=== PATIENT | female | born 1985 | race American Indian/Alaskan Native ===

== ENCOUNTER 2016-07-25 14:05 | Emergency (ER) | payer MEDICAID, OTHER ==
[2016-07-25 14:06] VITALS: BMI 38.2
[2016-07-25 14:15] VITALS: BP 113/72; PULSE 84; RESP 18; TEMP 98.2; O2SAT 100
--- NOTE | 2016-07-25 14:40 | ED PDOC ---
HPI: Back Time Seen by Provider: 07/25/16 14:38 Chief Complaint (Nursing): Back Pain Chief Complaint (Provider): back strain History Per: Patient (30 y/o female here with back pain that began after adjusting elevator cord. No history of lower back pain. Did not take any medication prior to arrival. Denies any urinary or rectal incontinence.) Past Medical History Reviewed: Historical Data, Nursing Documentation, Vital Signs Vital Signs: Last Vital Signs Temp 98.2 F 07/25/16 14:13 Pulse 84 07/25/16 14:13 Resp 18 07/25/16 14:13 BP 113/72 07/25/16 14:13 Pulse Ox 100 07/25/16 14:13 - Medical History PMH: Back Problems Denies: Diabetes, Hepatitis, HIV, HTN, Seizures, Sexually Transmitted Disease - Surgical History Surgical History: Cholecystectomy, - Family History Family History: States: Unknown Family Hx - Home Medications Home Medications: Ambulatory Orders Medication Instructions Recorded Vit No.126/Iron/FA 1 tab PO DAILY 09/20/15 [Classic Tablet] oxyCODONE/Acetaminophen [Percocet 1 tab PO Q4 PRN #30 tab 11/30/15 5/325 mg Tab] Ondansetron ODT [Zofran ODT] 4 mg PO QID PRN #15 odt 04/10/16 oxyCODONE/Acetaminophen [Percocet 1 ea PO QID PRN #10 tab 04/10/16 5/325 mg Tab] Naproxen [Naprosyn Tab] 1 tab PO Q8 PRN #21 tab 07/25/16 diaZEpam [Valium] 5 mg PO Q6 PRN #8 tab 07/25/16 - Allergies Allergies/Adverse Reactions: Allergies Allergy/AdvReac Type Severity Reaction Status Date / Time No Known Allergies Allergy Verified 04/10/16 09:49 Review of Systems ROS Statement: Except As Marked, All Systems Reviewed And Found Negative Musculoskeletal: Positive for: Back Pain Physical Exam - Reviewed Nursing Documentation Reviewed: Yes Vital Signs Reviewed: Yes - Physical Exam Appears: Positive for: Well, Non-toxic, No Acute Distress Head Exam: Positive for: ATRAUMATIC, NORMAL INSPECTION, NORMOCEPHALIC Skin: Positive for: Normal Color, Warm, DRY Eye Exam: Positive for: EOMI, Normal appearance, PERRL ENT: Positive for: Normal ENT Inspection Neck: Positive for: Normal, Painless ROM Cardiovascular/Chest: Positive for: Regular Rate, Rhythm Respiratory: Positive for: CNT, Normal Breath Sounds Gastrointestinal/Abdominal: Positive for: Normal Exam, Bowel Sounds, Soft Back: Positive for: Normal Inspection, Other (right paralumbar tenderness) Extremity: Positive for: Normal ROM Neurologic/Psych: Positive for: Alert, Oriented - ECG O2 Sat by Pulse Oximetry: 100 - Progress ED Course And Treament: Toradol 60 mg IM x 1 dose Disposition - Clinical Impression Clinical Impression: Back pain - Patient ED Disposition Is Patient to be Admitted: No - Disposition Referrals: [facility] [Outside] Disposition: Routine/Home Disposition Time: 15:21 Condition: FAIR Additional Instructions: NO HEAVY LIFTING THIS WEEK PLEASE Prescriptions: Naproxen [Naprosyn Tab] 1 tab PO Q8 PRN #21 tab PRN Reason: Pain, Moderate (4-7) diaZEpam [Valium] 5 mg PO Q6 PRN #8 tab PRN Reason: Muscle Spasm Instructions: Muscle Strain (ED), Acute Low Back Pain (DC) Forms: [facility] ED School/Work Excuse
== END 2016-07-25 15:30 | disposition home or self-care (01) ==
LOC: H.ER 14:05
DX: M54.9 Dorsalgia, unspecified (principal)

== ENCOUNTER 2017-01-15 10:27 | Emergency (ER) | payer OTHER ==
[2017-01-15 10:41] VITALS: PULSE 89; O2SAT 99
[2017-01-15 10:42] VITALS: BMI 38.4
[2017-01-15 11:18] VITALS: BP 129/96; RESP 15; TEMP 99.1
[2017-01-15] MEDS ORDERED: Naproxen 500 MG TAB PO STA (11:29)
[2017-01-15] MEDS ORDERED: Dexamethasone 4 mg/1 ml IM STA (11:31)
--- NOTE | 2017-01-15 11:35 | ED PDOC ---
HPI: General Adult Time Seen by Provider: 01/15/17 10:48 Chief Complaint (Nursing): Flu-like Symptoms Chief Complaint (Provider): Flu-like symptoms History Per: Patient History/Exam Limitations: no limitations Onset/Duration Of Symptoms: Days (x3) Current Symptoms Are (Timing): Still Present Additional Complaint(s): Maryam Agudelo is a 31 year old female with a past surgical history of a C- section presenting to the ED for an evaluation of a runny nose associated with sneezing, throat pain, and a subjective fever occurring since Sunday. The patient denies cough, shortness of breath, nausea, or vomiting. Pt also c/o sharp intermittent L lower abdominal pain, none at this time. PMD: Provider TBD Past Medical History Reviewed: Historical Data, Nursing Documentation, Vital Signs Vital Signs: Last Vital Signs Temp 99.1 F 01/15/17 11:13 Pulse 89 01/15/17 11:13 Resp 15 01/15/17 11:13 BP 129/96 H 01/15/17 11:13 Pulse Ox 99 01/15/17 13:56 - Medical History PMH: Back Problems Denies: Diabetes, Hepatitis, HIV, HTN, Seizures, Sexually Transmitted Disease - Surgical History Surgical History: Cholecystectomy, - Family History Family History: States: Unknown Family Hx - Social History Current smoker - smoking cessation education provided: No Ex-Smoker (has not smoked in the last 12 months): No Alcohol: None Drugs: Denies - Home Medications Home Medications: Ambulatory Orders Medication Instructions Recorded Azithromycin [Zithromax] 500 mg PO DAILY #4 tab 01/15/17 - Allergies Allergies/Adverse Reactions: Allergies Allergy/AdvReac Type Severity Reaction Status Date / Time No Known Allergies Allergy Verified 04/10/16 09:49 Review of Systems ROS Statement: Except As Marked, All Systems Reviewed And Found Negative Constitutional: Positive for: Fever (subjective) ENT: Positive for: Nose Discharge (runny nose/sneezing), Throat Pain Respiratory: Negative for: Cough, Shortness of Breath Gastrointestinal: Negative for: Nausea, Vomiting Physical Exam - Reviewed Nursing Documentation Reviewed: Yes Vital Signs Reviewed: Yes - Physical Exam Appears: Positive for: Non-toxic, No Acute Distress (speaking full sentences ) Head Exam: Positive for: ATRAUMATIC, NORMOCEPHALIC ENT: Positive for: Tonsillar Exudate (left sided), Tonsillar Swelling ( bilateral tonsillar hypertrophy), Other (uvula midline; no drooling) Cardiovascular/Chest: Positive for: Regular Rate, Rhythm, Chest Non Tender Respiratory: Positive for: Normal Breath Sounds. Negative for: Respiratory Distress Gastrointestinal/Abdominal: Positive for: Bowel Sounds, Soft, Tenderness (LLQ). Negative for: Guarding, Rebound Neurologic/Psych: Positive for: Alert, Oriented - ECG O2 Sat by Pulse Oximetry: 99 (RA) Pulse Ox Interpretation: Normal Medical Decision Making Medical Decision Making: Time: 10:48 Impression: Pharyngitis, URI, other conditions considered Plan: * Decadron Inj 10 mg IM * Naproxen Tab 500 mg PO * Zihromax 500 mg PO * US Pelvis/Transvag * Reevaluation 13:55 AMA. Pt states she urinated and doesn't want to wait for US. Scribe Attestation: Documented by Dulce Maria Edwards, acting as a scribe for Darcie Alfredo MD. Provider Scribe Attestation: All medical record entries made by the Scribe were at my direction and personally dictated by me. I have reviewed the chart and agree that the record accurately reflects my personal performance of the history, physical exam, medical decision making, and the department course for this patient. I have also personally directed, reviewed, and agree with the discharge instructions and disposition. Disposition - Clinical Impression Clinical Impression: Pharyngitis, Abdominal pain - Disposition Disposition: Against Medical Advice Disposition Time: 13:55 Condition: UNKNOWN Prescriptions: Azithromycin [Zithromax] 500 mg PO DAILY #4 tab Forms: [employer] (Maltese)
[2017-01-15] MEDS ORDERED: Naproxen 500 MG TAB PO ONE (11:52)
== END 2017-01-15 14:08 | disposition left against medical advice (07) ==
LOC: H.ER 10:27
DX: J02.9 Acute pharyngitis, unspecified (principal); R10.9 Unspecified abdominal pain
CPT/HCPCS: 81025; 96372; 99284; J1100

== ENCOUNTER 2017-01-16 09:30 | Observation (INO) | payer OTHER ==
[2017-01-16 09:30] VITALS: BMI 38.4
[2017-01-16 09:52] VITALS: BP 144/74; PULSE 84; RESP 20; TEMP 98; O2SAT 98
--- NOTE | 2017-01-16 12:18 | ED PDOC ---
HPI: General Adult Time Seen by Provider: 01/16/17 10:17 Chief Complaint (Nursing): Abdominal Pain History Per: Patient Additional Complaint(s): Pt. states for the past several days she's had LLQ abdominal pain. She was initially seen in ED yesterday and also had cough, sore throat, and facial swelling. She states an US of pelvis was ordered but she did not want to wait for it therefore she signed out AMA. Reports pain has continued prompting ED visit. Denies dysuria, hematuria, N/V/D, melena, hematochezia, BRBPR. Also states that she had a normal BM today. Against Medical Advice - AMA Patient Left Against Medical Advice: The patient declines admission to the hospital and wishes to leave the Emergency Department. This action is against my medical advice. This decision was made with informed refusal. The patient was told that admission to the hospital is necessary. Explanation of the reasons why were discussed. The risks of leaving were explained to the patient and include, but are not limited to, worsening of known or currently unknown conditions, permanent disability and from undiagnosed or untreated conditions. The patient has the capacity to make this informed decision and understands my explanation of the current medical problem and risks of leaving. The patient voluntarily accepts these risks and signed an AMA form documenting our conversation. The patient was given the opportunity to ask questions and reconsider. The patient was encouraged to return to the Emergency Department at any time for further care. Past Medical History Reviewed: Historical Data, Nursing Documentation, Vital Signs Vital Signs: Last Vital Signs Temp 98 F 01/16/17 09:49 Pulse 84 01/16/17 09:49 Resp 20 01/16/17 09:49 BP 144/74 01/16/17 09:49 Pulse Ox 98 01/16/17 15:50 - Medical History PMH: Back Problems Denies: Diabetes, Hepatitis, HIV, HTN, Seizures, Sexually Transmitted Disease - Surgical History Surgical History: Cholecystectomy, - Family History Family History: States: No Known Family Hx - Home Medications Home Medications: Ambulatory Orders Medication Instructions Recorded Azithromycin [Zithromax] 500 mg PO DAILY #4 tab 01/15/17 - Allergies Allergies/Adverse Reactions: Allergies Allergy/AdvReac Type Severity Reaction Status Date / Time No Known Allergies Allergy Verified 01/16/17 09:49 Review of Systems ROS Statement: Except As Marked, All Systems Reviewed And Found Negative Gastrointestinal: Positive for: Abdominal Pain Physical Exam - Physical Exam Appears: Positive for: Well, Non-toxic, No Acute Distress Skin: Positive for: Normal Color, Warm. Negative for: Rash Cardiovascular/Chest: Positive for: Regular Rate, Rhythm Respiratory: Positive for: CNT, Normal Breath Sounds Gastrointestinal/Abdominal: Positive for: Normal Exam, Bowel Sounds, Soft, Tenderness (mild LLQ abdominal tenderness) Back: Positive for: Normal Inspection. Negative for: L CVA Tenderness, R CVA Tenderness Extremity: Positive for: Normal ROM Neurologic/Psych: Positive for: Alert, Oriented - Laboratory Results Result Diagrams: 01/16/17 11:30 01/16/17 13:17 - ECG O2 Sat by Pulse Oximetry: 98 ED OBSERVATION Discharge: Yes Date of observation admission: 01/16/17 Time of observation admission: 11:08 - Observation admission statement Patient is being placed in observation because:: abdominal pain - Progress Note Progress Note: 01/16/17 11:[address] abd/pelvis w/ IV contrast ordered. Toradol 15mg IV ordered 01/16/17 12:46 Pt. reports continued pain. Dilaudid 1mg IV, zofran 4mg IV ordered. 01/16/17 15:00 CT abd/pelvis: stool is appreciate a short segment of small bowel the mid- pelvis with questionable collapse of small bowel distal to this segment. The overall bowel gas pattern is non-specific at this time however is not completely excluded very early potential small bowel obstruction. Follow up CT is advised following oral contrast administration for at least 1-2 hours. NO additional acute findings. Pt. informed of results but states she cannot stay as she must pick her children up from school. States she will return to ED for repeat CT. Pt. informed of risks of leaving and signing out AMA. Pt. accepts risks and will sign AMA. Disposition - Clinical Impression Clinical Impression: Abdominal pain in female, Left against medical advice - Disposition Disposition: Against Medical Advice Disposition Time: 15:00 Condition: GUARDED
[2017-01-16 12:25] LABS: BASO % 0.3 % (0.0-2.0); HEMATOCRIT 45.1 % (34.0-47.0); LYMPH # 2.9 K/uL (1.0-4.3); LYMPH % 18.7 % (20.0-40.0); MEAN CELL VOLUME 80.5 fl (81.0-99.0); MEAN CORPUSCULAR HEMOGLOBIN 26.2 pg (27.0-31.0); MEAN CORPUSCULAR HGB CONC 32.5 g/dL (33.0-37.0); MEAN PLATELET VOLUME 10.1 fl (7.2-11.7); MONO # 1.2 K/uL (0.0-0.8); MONO % 7.8 % (0.0-10.0); NEUT # 11.5 K/uL (1.8-7.0); NEUT % 73.2 % (50.0-75.0); WHITE BLOOD COUNT 15.7 K/uL (4.8-10.8)
[2017-01-16 13:05] LABS: ALB/GLOB RATIO 1.2 (1.0-2.1); ALKALINE PHOSPHATASE 80 U/L (38-126); ALT/SGPT 34 U/L (9-52); AST/SGOT 20 U/L (14-36); BILIRUBIN,TOTAL 0.5 mg/dl (0.2-1.3); BLOOD UREA NITROGEN 14 mg/dl (7-17); CALCIUM 11.2 mg/dL (8.4-10.2); CARBON DIOXIDE 19 mmol/L (22-30); CHLORIDE 110 mmol/L (98-107); GFR AFRICAN-AMERICAN > 60; GLUCOSE,RANDOM 104 mg/dL (65-105); POTASSIUM 5.8 MMOL/L (3.6-5.0); SODIUM 147 mmol/l (132-148); TOTAL PROTEIN 8.8 G/DL (6.3-8.2)
[2017-01-16] MEDS ORDERED: Iohexol 300 100 ML IJ ONE (13:32)
[2017-01-16] MEDS ORDERED: Sodium Chloride 0.9% 50 ML IV ONE (13:32)
[2017-01-16] MEDS ORDERED: Sodium Chloride 0.9% 1,000 ML IV STA (14:18)
--- NOTE | 2017-01-16 14:27 | CT ---
PROCEDURE: CT Abdomen and Pelvis with contrast HISTORY: LLQ abdominal pain COMPARISON: None. TECHNIQUE: Contrast dose: Omnipaque 300, 95 cc. Radiation dose: Total exam DLP = 1026.14 mGy-cm. This CT exam was performed using one or more of the following dose reduction techniques: Automated exposure control, adjustment of the mA and/or kV according to patient size, and/or use of iterative reconstruction technique. FINDINGS: LOWER THORAX: Left lower lobe bronchiectasis/ pulmonary cystic changes are again identified. No pleural effusion bilaterally or alveolar infiltrate. Ground-glass opacity is now identified more so at the right greater than left lung bases in the interval. Further clinical correlation is advised. LIVER: Stable mild hepatomegaly appears without focal mass evident. Diffuse fatty infiltration liver is appreciated. Prior cholecystectomy again evident with stable biliary tree dilatation. GALLBLADDER AND BILE DUCTS: Prior cholecystectomy. PANCREAS: Unremarkable. No gross lesion or ductal dilatation. SPLEEN: Unremarkable. ADRENALS: Unremarkable. No mass. KIDNEYS AND URETERS: Unremarkable. No hydronephrosis. No solid mass. VASCULATURE: Unremarkable. No aortic aneurysm. BOWEL: There is relatively prominent fecal loading throughout the large bowel. The small bowel is not simply distended however there is a short segment of small bowel that contains stool in the mid pelvis with loops distal to this segment set questionably decompressed. Lack of oral contrast limits evaluation of small bowel. At this time, it would be difficult to evaluate for mid or distal small bowel obstruction but is difficult to completely excluded either. Consider follow-up CT following oral contrast administration preceding the CT by at least 1-2 hours. APPENDIX: Normal appendix. PERITONEUM: Unremarkable. No free fluid. No free air. LYMPH NODES: Unremarkable. No enlarged lymph nodes. BLADDER: Unremarkable. REPRODUCTIVE: Unremarkable. BONES: No acute fracture. OTHER FINDINGS: A tiny umbilical hernia is identified containing only small fat. IMPRESSION: Stool is appreciate a short segment of small bowel the mid-pelvis with questionable collapse of small bowel distal to this segment. The overall bowel gas pattern is nonspecific at this time however is not completely excluded very early potential small-bowel obstruction. Clinical correlation is advised. Follow-up CT is advised following oral contrast administration for least 1-2 hours. No additional acute findings. Mild diffuse fatty infiltration liver. Prior cholecystectomy with stable, related dilatation of biliary tree both intrinsic and extrinsic to the liver.
== END 2017-01-16 15:26 | disposition left against medical advice (07) ==
LOC: H.ER 09:30 → H.EROBSV 11:08
PROVIDERS: ADMIT Emergency Medicine; ATTEND Emergency Medicine
DX: R10.31 Right lower quadrant pain (principal); R05 Cough; J02.9 Acute pharyngitis, unspecified; R60.9 Edema, unspecified
CPT/HCPCS: 74177; 80053; 81025; 84132; 85025; 86308; 87040; 96374; 96375; 99283; G0378; J1170; J1885; J2405; J7040; Q9967

== ENCOUNTER 2017-01-16 19:01 | Emergency (ER) | payer OTHER ==
[2017-01-16 19:01] VITALS: BMI 38.4
[2017-01-16] MEDS ORDERED: Iohexol 240 (50 ml) PO ONE (19:57)
[2017-01-16 20:32] LABS: BASO % 0.3 % (0.0-2.0); EOS # 0.1 K/uL (0.0-0.7); EOS % 0.5 % (0.0-4.0); HEMATOCRIT 40.8 % (34.0-47.0); LYMPH # 2.6 K/uL (1.0-4.3); LYMPH % 19.8 % (20.0-40.0); MEAN CELL VOLUME 80.6 fl (81.0-99.0); MEAN CORPUSCULAR HEMOGLOBIN 26.5 pg (27.0-31.0); MEAN CORPUSCULAR HGB CONC 32.9 g/dL (33.0-37.0); MEAN PLATELET VOLUME 9.8 fl (7.2-11.7); MONO # 0.8 K/uL (0.0-0.8); MONO % 6.4 % (0.0-10.0); NEUT # 9.6 K/uL (1.8-7.0); NRBC % 0.1 % (0.0-0.0); RED CELL DISTRIBUTION WIDTH 15.2 % (11.5-14.5); WHITE BLOOD COUNT 13.2 K/uL (4.8-10.8)
[2017-01-16] MEDS ORDERED: Iohexol 240 (50 ml) ONE (20:33)
[2017-01-16 20:57] LABS: BLOOD UREA NITROGEN 18 mg/dl (7-17); CALCIUM 9.9 mg/dL (8.4-10.2); CARBON DIOXIDE 22 mmol/L (22-30); CHLORIDE 108 mmol/L (98-107); GFR AFRICAN-AMERICAN > 60; GLUCOSE,RANDOM 103 mg/dL (65-105); POTASSIUM 4.5 MMOL/L (3.6-5.0); SODIUM 145 mmol/l (132-148)
--- NOTE | 2017-01-16 23:41 | ED PDOC ---
HPI: Abdomen Time Seen by Provider: 01/16/17 19:58 Chief Complaint (Nursing): Abdominal Pain Chief Complaint (Provider): Abdominal Pain History Per: Patient History/Exam Limitations: no limitations Current Symptoms Are (Timing): Still Present Location Of Pain/Discomfort: LUQ, LLQ Associated Symptoms: Nausea. denies: Vomiting, Diarrhea Additional Complaint(s): 31 year old female presents to ED with complaints of left abdominal pain for a repeat CT and has a history of chronic abdominal pain. Patient states that she was seen in the ED earlier today for the same complaint and had a CT scan done. CT indicated need for repeat imaging due to possible early SBO, however patient signed out AMA at the time. Patient notes that she has returned due to similar persistent pain. (-) diarrhea, blood in stool, or vomiting. (+) nausea. Notes that her chronic abdominal pain originated after her C section last year. PCP: [facility] Past Medical History Reviewed: Historical Data, Nursing Documentation, Vital Signs Vital Signs: Last Vital Signs Temp 99.1 F 01/16/17 19:06 Pulse 65 01/16/17 19:06 Resp 16 01/16/17 19:06 BP 138/94 H 01/16/17 19:06 Pulse Ox 100 01/17/17 00:00 - Medical History PMH: Anemia, Anxiety, Back Problems, Bipolar Disorder Denies: Diabetes, Hepatitis, HIV, HTN, Seizures, Sexually Transmitted Disease - Surgical History Surgical History: Cholecystectomy, - Family History Family History: States: Unknown Family Hx - Social History Alcohol: Social Drugs: Denies - Home Medications Home Medications: Ambulatory Orders Medication Instructions Recorded Azithromycin [Zithromax] 500 mg PO DAILY #4 tab 01/15/17 Dicyclomine [Dicyclomine HCl] 10 mg PO TID PRN #12 cap 01/17/17 Ondansetron [Zofran] 4 mg PO Q6H PRN #10 tab 01/17/17 traMADol [Ultram] 50 mg PO TID PRN #12 tab 01/17/17 - Allergies Allergies/Adverse Reactions: Allergies Allergy/AdvReac Type Severity Reaction Status Date / Time No Known Allergies Allergy Verified 01/16/17 19:06 Review of Systems ROS Statement: Except As Marked, All Systems Reviewed And Found Negative Gastrointestinal: Positive for: Nausea, Abdominal Pain (left sided). Negative for: Vomiting, Diarrhea, Melena, Hematochezia Physical Exam - Reviewed Nursing Documentation Reviewed: Yes Vital Signs Reviewed: Yes - Physical Exam Appears: Positive for: Non-toxic, No Acute Distress Skin: Positive for: Normal Color, Warm, Dry Eye Exam: Positive for: Normal appearance ENT: Positive for: Normal ENT Inspection Neck: Positive for: Normal, Painless ROM, Supple Cardiovascular/Chest: Positive for: Regular Rate, Rhythm. Negative for: Murmur Respiratory: Positive for: Normal Breath Sounds. Negative for: Respiratory Distress Gastrointestinal/Abdominal: Positive for: Soft, Tenderness (mild left abdominal tenderness). Negative for: Guarding, Rebound Neurologic/Psych: Positive for: Alert, Oriented. Negative for: Motor/Sensory Deficits - Laboratory Results Result Diagrams: 01/16/17 20:30 01/16/17 20:30 - ECG O2 Sat by Pulse Oximetry: 100 (RA) Pulse Ox Interpretation: Normal Medical Decision Making Medical Decision Makin Initial plan: * CTA A/P * Labs * Iohexol 50mL PO 2352 CT FINDINGS Lower thorax: Cystic bronchiectasis is noted in the LEFT lung base. ABDOMEN: Liver: Unremarkable. No mass. Gallbladder and bile ducts: There has been a cholecystectomy. No ductal dilation. Pancreas: Unremarkable. No mass. No ductal dilation. Spleen: Unremarkable. No splenomegaly. Adrenals: Unremarkable. No mass. Kidneys and ureters: Unremarkable. No solid mass. No hydronephrosis. Stomach and bowel: There is contrast noted throughout the small bowel. There is a segment of small bowel which appears mildly thickwalled, image 100 series 3. Mild generalized stranding of the small bowel mesentery in the lower abdomen, new compared to the prior study. No obstruction. There is no wall thickening or pericolonic stranding to suggest colitis. Appendix: A normal appendix is identified. PELVIS: Bladder: Unremarkable. No mass. Reproductive: Unremarkable as visualized. Intraperitoneal space: Unremarkable. No free air. No significant fluid collection. Bones/joints: No acute fracture. No dislocation. Soft tissues: Unremarkable. Vasculature: Unremarkable. No abdominal aortic aneurysm. Lymph nodes: There mildly prominent RIGHT lower quadrant mesenteric new measuring up to 1.3 cm. IMPRESSION: No evidence of bowel obstruction. New, mild nonspecific stranding of the small bowel mesentery in the lower abdomen. Question mildly thick walled segment of small bowel. Findings could be secondary to mild acute enteritis or mesenteritis. Clinical correlation recommended. LEFT lower lobe cystic bronchiectasis. Cholecystectomy. pt given results. Rx bentyl and tramadol Followup GI. On re-eval more comfortable states pain has improved. Scribe Attestation: Documented by Brittaney Modi acting as a scribe for Raghu Flores III, DO. Scribe Attestation: All medical record entries made by the Scribe were at my direction and personally dictated by me. I have reviewed the chart and agree that the record accurately reflects my personal performance of the history, physical exam, medical decision making, and the department course for this patient. I have also personally directed, reviewed, and agree with the discharge instructions and disposition. Disposition - Clinical Impression Clinical Impression: Abdominal pain in female, Enteritis - Patient ED Disposition Is Patient to be Admitted: No Counseled Patient/Family Regarding: Studies Performed, Diagnosis, Need For Followup, Rx Given - Disposition Referrals: López Stratton MD [Staff Provider] - Disposition: Routine/Home Disposition Time: 00:15 Condition: STABLE Additional Instructions: Followup with GI specialist for further testing. Return to ER for any worse or new symptoms/ Prescriptions: Dicyclomine [Dicyclomine HCl] 10 mg PO TID PRN #12 cap PRN Reason: Gi Distress Ondansetron [Zofran] 4 mg PO Q6H PRN #10 tab PRN Reason: Nausea/Vomiting traMADol [Ultram] 50 mg PO TID PRN #12 tab PRN Reason: Pain, Moderate (4-7) Instructions: Abdominal Pain (ED), Enteritis (ED) Forms: [email or web address] (Swedish)
--- NOTE | 2017-01-16 23:53 | CT ---
EXAM: CT Abdomen and Pelvis With Intravenous Contrast CLINICAL HISTORY: 31 years old, female; Pain; Abdominal pain; Localized; Left lower quadrant (llq); Prior surgery; Surgery date: 6+ months; Surgery type: 2 c-sections. Gb removed; Additional info: Repeat CT for R/O sbo (initial td perform earlier) TECHNIQUE: Axial computed tomography images of the abdomen and pelvis with intravenous contrast. All CT scans at this facility use one or more dose reduction techniques, viz.: automated exposure control; ma/kV adjustment per patient size (including targeted exams where dose is matched to indication; i.e. head); or iterative reconstruction technique. Coronal and sagittal reformatted images were created and reviewed. COMPARISON: CT - ABD PELVIS IV CONTRAST ONLY 01/16/2017 1:55:56 PM FINDINGS: Lower thorax: Cystic bronchiectasis is noted in the LEFT lung base. ABDOMEN: Liver: Unremarkable. No mass. Gallbladder and bile ducts: There has been a cholecystectomy. No ductal dilation. Pancreas: Unremarkable. No mass. No ductal dilation. Spleen: Unremarkable. No splenomegaly. Adrenals: Unremarkable. No mass. Kidneys and ureters: Unremarkable. No solid mass. No hydronephrosis. Stomach and bowel: There is contrast noted throughout the small bowel. There is a segment of small bowel which appears mildly thickwalled, image 100 series 3. Mild generalized stranding of the small bowel mesentery in the lower abdomen, new compared to the prior study. No obstruction. There is no wall thickening or pericolonic stranding to suggest colitis. Appendix: A normal appendix is identified. PELVIS: Bladder: Unremarkable. No mass. Reproductive: Unremarkable as visualized. ABDOMEN and PELVIS: Intraperitoneal space: Unremarkable. No free air. No significant fluid collection. Bones/joints: No acute fracture. No dislocation. Soft tissues: Unremarkable. Vasculature: Unremarkable. No abdominal aortic aneurysm. Lymph nodes: There mildly prominent RIGHT lower quadrant mesenteric new measuring up to 1.3 cm. IMPRESSION: No evidence of bowel obstruction. New, mild nonspecific stranding of the small bowel mesentery in the lower abdomen. Question mildly thick walled segment of small bowel. Findings could be secondary to mild acute enteritis or mesenteritis. Clinical correlation recommended. LEFT lower lobe cystic bronchiectasis. Cholecystectomy.
[2017-01-17 00:35] VITALS: BP 133/78; PULSE 76; RESP 17; TEMP 98.3; O2SAT 99
== END 2017-01-17 00:20 | disposition home or self-care (01) ==
LOC: H.ER 19:01
DX: K52.9 Noninfective gastroenteritis and colitis, unspecified (principal); F31.9 Bipolar disorder, unspecified; F41.9 Anxiety disorder, unspecified; Z90.49 Acquired absence of other specified parts of digestive tract
CPT/HCPCS: 74176; 80048; 85025; 99283; Q9966

== ENCOUNTER 2017-03-01 16:10 | Emergency (ER) | payer OTHER ==
[2017-03-01 16:10] VITALS: BMI 38.4
[2017-03-01 16:31] VITALS: BP 145/93; PULSE 84; RESP 16; TEMP 96.7; O2SAT 100
--- NOTE | 2017-03-01 16:53 | ED PDOC ---
HPI: Eye Injury/Pain Time Seen by Provider: 03/01/17 16:45 Chief Complaint (Nursing): Eye Problem Chief Complaint (Provider): [place] [facility] History Per: Patient History/Exam Limitations: no limitations Onset/Duration Of Symptoms: Days (1) Additional Complaint(s): Patient is a 31 y/o female with no significant past medical history presenting to the emergency department for left eye redness after waking up this morning. Reports that her eyes feel itchy but denies discharge, changes in vision, or other complaints. Son has pink eye. PCP: none provided. Past Medical History Reviewed: Historical Data, Nursing Documentation, Vital Signs Vital Signs: Last Vital Signs Temp 96.7 F L 03/01/17 16:31 Pulse 84 03/01/17 16:31 Resp 16 03/01/17 16:31 BP 145/93 H 03/01/17 16:31 Pulse Ox 100 03/01/17 16:31 - Medical History PMH: Anemia, Anxiety, Back Problems, Bipolar Disorder - Surgical History Surgical History: Cholecystectomy, - Family History Family History: States: Unknown Family Hx - Living Arrangements Living Arrangements: With Family - Social History Current smoker - smoking cessation education provided: No Alcohol: None Drugs: Denies - Home Medications Home Medications: Ambulatory Orders Medication Instructions Recorded Azithromycin [Zithromax] 500 mg PO DAILY #4 tab 01/15/17 Dicyclomine [Dicyclomine HCl] 10 mg PO TID PRN #12 cap 01/17/17 Ondansetron [Zofran] 4 mg PO Q6H PRN #10 tab 01/17/17 traMADol [Ultram] 50 mg PO TID PRN #12 tab 01/17/17 Polymyxin/Trimethoprim Sulfate 10 ml OD TID #1 bottle 03/01/17 [Polytrim Ophth Soln] - Allergies Allergies/Adverse Reactions: Allergies Allergy/AdvReac Type Severity Reaction Status Date / Time No Known Allergies Allergy Verified 03/01/17 16:30 Review of Systems ROS Statement: Except As Marked, All Systems Reviewed And Found Negative Eyes: Positive for: Redness (bilateral). Negative for: Vision Change, Other ( discharge) Physical Exam - Reviewed Nursing Documentation Reviewed: Yes Vital Signs Reviewed: Yes - Physical Exam Appears: Positive for: Well, Non-toxic, No Acute Distress Head Exam: Positive for: ATRAUMATIC, NORMAL INSPECTION, NORMOCEPHALIC Skin: Positive for: Normal Color, Warm, Dry Eye Exam: Positive for: EOMI, PERRL, Conjunctival injection (left). Negative for: Nystagmus, Periorbital swelling, Periorbital tenderness Neck: Positive for: Normal Cardiovascular/Chest: Positive for: Regular Rate, Rhythm Respiratory: Positive for: Normal Breath Sounds. Negative for: Accessory Muscle Use, Respiratory Distress Extremity: Positive for: Normal ROM Neurologic/Psych: Positive for: Alert, Oriented (x3) - ECG O2 Sat by Pulse Oximetry: 100 (RA) Pulse Ox Interpretation: Normal Medical Decision Making Medical Decision Making: Sx c.w conjunctivitis. Will prescribe polytrim Advise follow up with optho Disposition - Clinical Impression Clinical Impression: Conjunctivitis Counseled Patient/Family Regarding: Diagnosis, Need For Followup, Rx Given - Disposition Referrals: Reginaldo Zamora MD [Staff Provider] - Disposition Time: 17:00 Condition: GOOD Additional Instructions: Apply drop as indicated Follow up with ophto Prescriptions: Polymyxin/Trimethoprim Sulfate [Polytrim Ophth Soln] 10 ml OD TID #1 bottle Instructions: Conjunctivitis (ED) Forms: [employer] ([place]) - POA Present On Arrival: None
== END 2017-03-01 17:09 | disposition home or self-care (01) ==
LOC: H.ER 16:10
DX: H10.9 Unspecified conjunctivitis (principal); F31.9 Bipolar disorder, unspecified; F41.9 Anxiety disorder, unspecified

== ENCOUNTER 2017-05-29 09:31 | Emergency (ER) | payer OTHER ==
[2017-05-29 09:31] VITALS: BMI 38.4
[2017-05-29 09:42] VITALS: TEMP 99; O2SAT 99
[2017-05-29 12:27] VITALS: BP 130/80; PULSE 90; RESP 18
--- NOTE | 2017-05-29 15:33 | ED PDOC ---
HPI: General Adult Time Seen by Provider: 05/29/17 09:56 Chief Complaint (Nursing): Cough, Cold, Congestion History Per: Patient Additional Complaint(s): Pt. states for the past 4-5 days she's had cough (non-productive) with nasal congestion. She has been using OTC cough meds without relief. Denies chest pain , SOB, hemoptysis, N/V/D, rash, abdominal pain. Past Medical History Reviewed: Historical Data, Nursing Documentation, Vital Signs Vital Signs: Last Vital Signs Temp 99.0 F 05/29/17 09:39 Pulse 90 05/29/17 12:25 Resp 18 05/29/17 12:25 BP 130/80 05/29/17 12:25 Pulse Ox 99 05/29/17 12:25 - Medical History PMH: Anemia, Anxiety, Back Problems, Bipolar Disorder Denies: Diabetes, Hepatitis, HIV, HTN, Seizures, Sexually Transmitted Disease - Surgical History Surgical History: Cholecystectomy, - Family History Family History: States: No Known Family Hx - Home Medications Home Medications: Ambulatory Orders Medication Instructions Recorded Azithromycin [Zithromax] 500 mg PO DAILY #4 tab 01/15/17 Dicyclomine [Dicyclomine HCl] 10 mg PO TID PRN #12 cap 01/17/17 Ondansetron [Zofran] 4 mg PO Q6H PRN #10 tab 01/17/17 traMADol [Ultram] 50 mg PO TID PRN #12 tab 01/17/17 Polymyxin/Trimethoprim Sulfate 10 ml OD TID #1 bottle 03/01/17 [Polytrim Ophth Soln] Fluticasone Propionate [Flonase] 2 spr NS DAILY PRN #1 bottle 05/29/17 Promethazine DM [Phenergan DM 5 - 10 ml PO Q8 PRN #120 ml 05/29/17 Syrup] - Allergies Allergies/Adverse Reactions: Allergies Allergy/AdvReac Type Severity Reaction Status Date / Time No Known Allergies Allergy Verified 03/01/17 16:30 Review of Systems ROS Statement: Except As Marked, All Systems Reviewed And Found Negative ENT: Positive for: Nose Discharge Respiratory: Positive for: Cough Physical Exam - Physical Exam Appears: Positive for: Well, Non-toxic, No Acute Distress Skin: Positive for: Normal Color, Warm. Negative for: Rash Eye Exam: Positive for: EOMI, Normal appearance, PERRL ENT: Positive for: Normal ENT Inspection. Negative for: Pharyngeal Erythema Neck: Positive for: Normal, Painless ROM Cardiovascular/Chest: Positive for: Regular Rate, Rhythm Respiratory: Positive for: CNT, Normal Breath Sounds Gastrointestinal/Abdominal: Positive for: Normal Exam, Soft. Negative for: Tenderness Neurologic/Psych: Positive for: Alert, Oriented - ECG O2 Sat by Pulse Oximetry: 99 Disposition - Clinical Impression Clinical Impression: Upper respiratory infection - Patient ED Disposition Is Patient to be Admitted: No - Disposition Disposition: Routine/Home Disposition Time: 10:00 Condition: STABLE Prescriptions: Fluticasone Propionate [Flonase] 2 spr NS DAILY PRN #1 bottle PRN Reason: Allergy Symptoms Promethazine DM [Phenergan DM Syrup] 5 - 10 ml PO Q8 PRN #120 ml PRN Reason: Cough Instructions: Upper Respiratory Infection (ED) Forms: [facility] (Italian), [facility] ED School/Work Excuse Print Language: L[place]
== END 2017-05-29 12:27 | disposition home or self-care (01) ==
LOC: H.ER 09:31
DX: J06.9 Acute upper respiratory infection, unspecified (principal)

== ENCOUNTER 2017-11-06 14:21 | Emergency (ER) | payer OTHER ==
[2017-11-06 14:21] VITALS: BMI 38.4
[2017-11-06 14:43] VITALS: BP 118/86; PULSE 84; RESP 18; TEMP 98.8; O2SAT 99
[2017-11-06] MEDS ORDERED: Oxycodone/Acetaminophen 5/325 mg Tab PO STA (15:48)
--- NOTE | 2017-11-06 15:53 | ED PDOC ---
Upper Extremity Pain/Injury Time Seen by Provider: 11/06/17 14:45 Chief Complaint (Nursing): Upper Extremity Problem/Injury Chief Complaint (Provider): left arm pain History Per: Patient Additional Complaint(s): Pt. 31 y/o female with PMH carpal tunnel syndrome presents with left wrist pain radiating to her elbow. Pt. also reports hitting her left elbow against a door yesterday. Pt. has been taking motrin without significant relief of pain. Past Medical History Reviewed: Nursing Documentation, Vital Signs Vital Signs: Last Vital Signs Temp 98.8 F 11/06/17 14:40 Pulse 84 11/06/17 14:40 Resp 18 11/06/17 14:40 BP 118/86 11/06/17 14:40 Pulse Ox 99 11/06/17 14:40 - Medical History PMH: Anemia, Anxiety, Back Problems, Bipolar Disorder Denies: Diabetes, Hepatitis, HIV, HTN, Seizures, Sexually Transmitted Disease - Surgical History Surgical History: Cholecystectomy, - Family History Family History: States: No Known Family Hx - Home Medications Home Medications: Ambulatory Orders Medication Instructions Recorded Azithromycin [Zithromax] 500 mg PO DAILY #4 tab 01/15/17 Dicyclomine [Dicyclomine HCl] 10 mg PO TID PRN #12 cap 01/17/17 Ondansetron [Zofran] 4 mg PO Q6H PRN #10 tab 01/17/17 traMADol [Ultram] 50 mg PO TID PRN #12 tab 01/17/17 Polymyxin/Trimethoprim Sulfate 10 ml OD TID #1 bottle 03/01/17 [Polytrim Ophth Soln] Fluticasone Propionate [Flonase] 2 spr NS DAILY PRN #1 bottle 05/29/17 Promethazine DM [Phenergan DM 5 - 10 ml PO Q8 PRN #120 ml 05/29/17 Syrup] Ibuprofen [Motrin] 600 mg PO Q6 #20 tab 11/06/17 - Allergies Allergies/Adverse Reactions: Allergies Allergy/AdvReac Type Severity Reaction Status Date / Time No Known Allergies Allergy Verified 03/01/17 16:30 Review of Systems ROS Statement: Except As Marked, All Systems Reviewed And Found Negative Musculoskeletal: Positive for: Arm Pain Physical Exam - Reviewed Nursing Documentation Reviewed: Yes Vital Signs Reviewed: Yes - Physical Exam Appears: Positive for: Non-toxic, No Acute Distress Head Exam: Positive for: ATRAUMATIC, NORMAL INSPECTION, NORMOCEPHALIC Skin: Positive for: Normal Color, Warm, DRY Eye Exam: Positive for: EOMI, Normal appearance, PERRL ENT: Positive for: Normal ENT Inspection Neck: Positive for: Normal, Painless ROM Cardiovascular/Chest: Positive for: Regular Rate, Rhythm Respiratory: Positive for: CNT, Normal Breath Sounds Gastrointestinal/Abdominal: Positive for: Normal Exam, Soft Back: Positive for: Normal Inspection Extremity: Positive for: Normal ROM, Tenderness, Other (positive tinnel's). Negative for: Swelling Neurologic/Psych: Positive for: Alert, Oriented - ECG O2 Sat by Pulse Oximetry: 99 Medical Decision Making Medical Decision Making: XR: negative wrist splint applied. RICE therapy discussed Hand surgeon referred Disposition - Clinical Impression Clinical Impression: Carpal tunnel syndrome - Patient ED Disposition Is Patient to be Admitted: No - Disposition Referrals: Lucero Mckinley MD [Staff Provider] - Disposition: Routine/Home Disposition Time: 17:52 Condition: STABLE Prescriptions: Ibuprofen [Motrin] 600 mg PO Q6 #20 tab Instructions: Carpal Tunnel Syndrome, Carpal Tunnel Exercises Forms: [facility] (Northern Irish), [facility] ED School/Work Excuse
[2017-11-06] MEDS ORDERED: Oxycodone/Acetaminophen 5/325 mg Tab ONE (15:57)
--- NOTE | 2017-11-06 16:41 | RAD ---
Date of service: 11/06/2017 PROCEDURE: Radiographs of the Left Forearm HISTORY: pain COMPARISON: None available. TECHNIQUE: Frontal and lateral views obtained. FINDINGS: BONES: No fracture or destructive lesion. JOINT SPACES: Unremarkable. OTHER FINDINGS: There is a minimal subcutaneous reticulated edema- mid to proximal forearm level dorsal soft tissues lateral view most evident. IMPRESSION: No osseous or joint pathology seen. Minimal subcutaneous reticulated edema as above
--- NOTE | 2017-11-06 16:43 | RAD ---
Date of service: 11/06/2017 PROCEDURE: Left Wrist Radiographs. HISTORY: pain COMPARISON: None. FINDINGS: BONES: Normal. No fracture. JOINTS: Normal. No dislocation. SOFT TISSUES: There is probable trace subcutaneous edema present - near the radial styloid and proximal to this. No bony or joint pathology noted OTHER FINDINGS: None. IMPRESSION: Nonspecific trace soft tissue/subcutaneous edema. No gas-forming cellulitis seen. No bony or joint pathology noted
== END 2017-11-06 19:52 | disposition home or self-care (01) ==
LOC: H.ER 14:21
DX: G56.02 Carpal tunnel syndrome, left upper limb (principal); F31.9 Bipolar disorder, unspecified; F41.9 Anxiety disorder, unspecified

== ENCOUNTER 2018-02-03 07:41 | Emergency (ER) | payer OTHER ==
[2018-02-03 07:42] VITALS: BMI 38.4
[2018-02-03 07:47] VITALS: BP 151/90; PULSE 93; RESP 18; TEMP 98.9; O2SAT 98
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
--- NOTE | 2018-02-03 17:00 | RAD ---
Date of service: 02/03/2018 PROCEDURE: Cervical Spine Radiographs. HISTORY: Pain. COMPARISON: None. FINDINGS: BONES: Alignment maintained. No fracture. Dens Intact. DISC SPACES: Normal. SOFT TISSUES: Normal. No prevertebral soft tissue swelling. OTHER FINDINGS: None. IMPRESSION: No evidence of acute displaced fracture or dislocation.
== END 2018-02-03 09:33 | disposition home or self-care (01) ==
LOC: H.ER 07:41
DX: S13.4XXA Sprain of ligaments of cervical spine, initial encounter (principal); V43.52XA Car driver injured in collision with other type car in traffic accident, initial encounter; Y92.410 Unspecified street and highway as the place of occurrence of the external cause; F31.9 Bipolar disorder, unspecified

== ENCOUNTER 2018-05-26 16:30 | Emergency (ER) | payer OTHER ==
[2018-05-26 16:30] VITALS: BMI 38.4
[2018-05-26 16:45] VITALS: RESP 18
[2018-05-26] MEDS ORDERED: DiphenhydrAMINE 50 mg/ml Inj IVP STA (16:59)
[2018-05-26] MEDS ORDERED: Sodium Chloride 0.9% 1,000 ML IV ONE ×2 (17:00→18:48)
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
[2018-05-26] MEDS ORDERED: DiphenhydrAMINE 50 mg/ml Inj ONE (17:34)
[2018-05-26 18:20] LABS: SQUAMOUS EPITHIAL 49 /hpf (0-5); URINE BACTERIA RARE (<OCC); URINE BILIRUBIN NEGATIVE (NEGATIVE); URINE BLOOD NEGATIVE (NEGATIVE); URINE CLARITY CLOUDY (Clear); URINE COLOR YELLOW (YELLOW); URINE GLUCOSE (UA) NEG (NEGATIVE); URINE LEUKOCYTE ESTERASE NEG Leu/uL (Negative); URINE PROTEIN 30 mg/dL (NEGATIVE); URINE UROBILINOGEN 0.2-1.0 mg/dL (0.2-1.0)
[2018-05-26 20:02] LABS: BASO # 0.1 K/uL (0.0-0.2); BASO % 0.7 % (0.0-2.0); EOS # 0.3 K/uL (0.0-0.7); EOS % 3.2 % (0.0-4.0); HEMOGLOBIN 11.4 g/dL (12.0-16.0); LYMPH # 3.6 K/uL (1.0-4.3); LYMPH % 42.4 % (20.0-40.0); MEAN CELL VOLUME 82.3 fl (81.0-99.0); MEAN CORPUSCULAR HEMOGLOBIN 27.2 pg (27.0-31.0); MEAN PLATELET VOLUME 9.2 fl (7.2-11.7); MONO # 0.4 K/uL (0.0-0.8); MONO % 5.3 % (0.0-10.0); NEUT # 4.1 K/uL (1.8-7.0); NEUT % 48.4 % (50.0-75.0); RBC 4.18 Mil/uL (3.80-5.20); RED CELL DISTRIBUTION WIDTH 14.5 % (11.5-14.5); WHITE BLOOD COUNT 8.4 K/uL (4.8-10.8)
[2018-05-26 20:09] LABS: ALB/GLOB RATIO 1.2 (1.0-2.1); ALT/SGPT 23 U/L (9-52); AST/SGOT 38 U/L (14-36); BLOOD UREA NITROGEN 14 mg/dl (7-17); GFR NON-AFRICAN AMERICAN > 60
[2018-05-26 22:24] VITALS: BP 139/84; PULSE 89; TEMP 98.5; O2SAT 100
--- NOTE | 2018-05-27 11:01 | CT ---
Date of service: 05/26/2018 PROCEDURE: CT HEAD WITHOUT CONTRAST. HISTORY: INEXT HEADACHE COMPARISON: None available. TECHNIQUE: Axial computed tomography images were obtained through the head/brain without intravenous contrast. Radiation dose: Total exam DLP = 948.89 mGy-cm. This CT exam was performed using one or more of the following dose reduction techniques: Automated exposure control, adjustment of the mA and/or kV according to patient size, and/or use of iterative reconstruction technique. FINDINGS: HEMORRHAGE: No intracranial hemorrhage. BRAIN: No mass effect or edema. No atrophy or chronic microvascular ischemic changes. VENTRICLES: Unremarkable. No hydrocephalus. CALVARIUM: Unremarkable. PARANASAL SINUSES: Unremarkable as visualized. No significant inflammatory changes. MASTOID AIR CELLS: Unremarkable as visualized. No inflammatory changes. OTHER FINDINGS: None. IMPRESSION: Normal CT of the Head.
== END 2018-05-26 22:15 | disposition home or self-care (01) ==
LOC: H.ER 16:30
DX: G43.909 Migraine, unspecified, not intractable, without status migrainosus (principal); J01.10 Acute frontal sinusitis, unspecified; F17.200 Nicotine dependence, unspecified, uncomplicated; Z86.59 Personal history of other mental and behavioral disorders; I10 Essential (primary) hypertension
CPT/HCPCS: 70450; 80053; 81003; 81025; 85025; 96361; 96374; 96375; 99285; J1200; J1885; J2060; J2405; J7030